=== PATIENT | female | born 1985 | race Two or more races ===

== ENCOUNTER 2024-02-26 12:28 | Emergency (ER) | payer SELFPAY ==
[~2024-02-26] VITALS: Ht 170.2 cm; Wt 160.0 kg
[2024-02-26] MEDS: cefTRIAXone SOD 1,000 MG VL IM ONE (14:17)
[2024-02-26] MEDS ORDERED: LIDO2SOL26 MT (14:52)
[2024-02-26] MEDS ORDERED: ACYC400T16 PO (14:52)
[2024-02-26 15:10] VITALS: BP 119/69; PULSE 70; RESP 17; TEMP 97.7; O2SAT 98
== END 2024-02-26 15:14 | disposition home or self-care (01) ==
LOC: ER 12:28
DX: B00.1 Herpesviral vesicular dermatitis (principal); K12.1 Other forms of stomatitis
CPT/HCPCS: 96372; 99283; J0696